=== PATIENT | male | born 1940 | race African-American/Black ===

== ENCOUNTER 2022-09-29 05:04 | Inpatient (IN) | payer BC ==
[~2022-09-29] VITALS: Ht 172.7 cm; Wt 98.6 kg
[2022-09-29] MEDS ORDERED: FUROSEMIDE 40MG/4ML VIAL IVP ONE (05:15)
[2022-09-29] MEDS ORDERED: SODIUM CHLORIDE 0.9% 250 ML IV ONE ×2 (05:45→06:45)
[2022-09-29 06:23] LABS: BG CARBOXYHEMOGLOBIN 1.9 % (0.5-1.5); BG DEOXYHEMOGLOBIN 1.2 % (0.0-5.0); BG FRACTION INSPIRED OXYGEN 60; BG HCO3 ACT 25.2 mmol/L (22.0-26.0); BG METHEMOGLOBIN 0.3 % (0.0-1.5); BG OXYGEN SATURATION 98.8 % (92.0-98.5); BG OXYHEMOGLOBIN 96.6 % (94.0-97.0); BG PCO2 47.9 mmHg (35.0-45.0); BG PH 7.339 (7.350-7.450); BG PO2 150.7 mmHg (75.0-100.0); BG SAMPLE SITE RIGHT RADIAL; BG TOTAL HEMOGLOBIN 13.5 g/dL (12.0-18.0); BG VENT MODE MASK - BIPAP
[2022-09-29 06:32] LABS: BASOPHILS % 0.8 % (0.0-2.0); EOSINOPHILS % 4.5 % (0.0-5.0); HEMATOCRIT. 40.8 % (42.0-52.0); HEMOGLOBIN. 13.6 g/dL (14.0-18.0); LYMPHOCYTES % 11.2 % (20.0-50.0); MEAN PLATELET VOLUME 8.9 fl (7.4-10.4); MONOCYTES % 7.4 % (2.0-8.0); NEUTROPHILS % 76.1 % (40.0-76.0); PLATELET 239 x1000/uL (130-400); RED BLOOD CELL COUNT 4.39 mill/uL (4.7-6.1); RED CELL DISTRIBUTION WIDTH 14.1 % (11.6-14.6)
[2022-09-29 06:53] LABS: CHLORIDE 104 mEq/L (98-107)
[2022-09-29] MEDS ORDERED: ACETAMINOPHEN 325MG TABLET PO PRN (11:15)
[2022-09-29] MEDS ORDERED: ASPIRIN 325MG EC TABLET PO NR (11:15)
[2022-09-29] MEDS ORDERED: GUAIFENESIN 200MG/10ML SUGAR FREE UDC PO PRN (11:15)
[2022-09-29] MEDS ORDERED: IPRATROPIUM/ALBUTEROL 0.5-3(2.5)MG/3ML NEB HHN PRN (11:15)
[2022-09-29] MEDS ORDERED: LORAZEPAM 0.5MG TABLET PO PRN (11:15)
[2022-09-29] MEDS ORDERED: MAGNESIUM/ALUMINUM HYDROXIDE/SIMETHICONE 30ML UDC PO PRN (11:15)
[2022-09-29] MEDS ORDERED: DOCUSATE SODIUM 100MG CAPSULE PO PRN (11:15)
[2022-09-29] MEDS ORDERED: ONDANSETRON HCL 4MG/2ML INJ IV PRN (11:15)
[2022-09-29] MEDS ORDERED: CLONIDINE 0.1MG TABLET PO PRN (11:15)
[2022-09-29] MEDS ORDERED: ENOXAPARIN 40MG/0.4ML SYR SUBCUT SCH (11:15)
[2022-09-29] MEDS ORDERED: ACETAMINOPHEN 650MG/20.3ML UDC GT PRN (11:15)
[2022-09-29] MEDS: FUROSEMIDE 40MG/4ML VIAL IV SCH ×2 (11:30→18:38)
[2022-09-29] MEDS: ENOXAPARIN 30MG/0.3ML SYR SUBCUT SCH ×2 (11:30→21:56)
[2022-09-29] MEDS ORDERED: ZOLPIDEM TARTRATE 5MG TABLET PO PRN (14:45)
[2022-09-29] MEDS ORDERED: NITROGLYCERIN 0.4MG TABLET SL SL PRN (14:45)
[2022-09-29 15:40] LABS: D-DIMER 1.72 mg/L FEU (<0.50); INR 1.1; PROTHROMBIN TIME 11.9 sec (9.6-11.0)
[2022-09-29 16:00] VITALS: BP 130/80
[2022-09-29 16:03] LABS: AMYLASE 27 IU/L (25-115); CREATINE KINASE 82 IU/L (39-308)
[2022-09-29 16:11] LABS: PHOSPHORUS 2.6 mg/dL (2.5-4.9)
[2022-09-29 16:19] LABS: T4 FREE 1.22 ng/dL (0.76-1.46)
[2022-09-29] MEDS: SPIRONOLACTONE 25MG TABLET PO SCH (16:20)
[2022-09-29 16:29] VITALS: BP 173/121
[2022-09-29 16:47] LABS: VITAMIN B12 SERUM 345 pg/mL (211-911)
[2022-09-29 16:51] LABS: FOLIC ACID (FOLATE) SERUM > 20.00 ng/mL (>5.38)
[2022-09-29] MEDS ORDERED: CRES10 PO (18:27)
[2022-09-29] MEDS ORDERED: VALS40TA11 PO (18:27)
[2022-09-29] MEDS ORDERED: RIVA20TA PO (18:27)
[2022-09-29] MEDS ORDERED: HYDR12.54 PO (18:33)
[2022-09-29] MEDS ORDERED: LEVO5TAB29 PO (18:33)
[2022-09-29] MEDS ORDERED: MULT-1146 PO (18:33)
[2022-09-29] MEDS ORDERED: MECL-159 PO (18:33)
[2022-09-29] MEDS ORDERED: ACET-2708 PO (18:33)
[2022-09-29] MEDS ORDERED: FURO20TA4 PO (18:33)
[2022-09-29] MEDS ORDERED: DOCU-150 PO (18:33)
[2022-09-29] MEDS ORDERED: DIXL10 PO (18:33)
[2022-09-29] MEDS ORDERED: GABA-533 PO (18:33)
[2022-09-29] MEDS ORDERED: SOTA80TA PO (18:33)
[2022-09-29] MEDS ORDERED: HYDR-459 PO (18:33)
[2022-09-29 20:00] VITALS: BP 137/81
[2022-09-29] MEDS ORDERED: DEXTROSE 50% WATER 50ML SYRINGE IV PRN (21:45)
[2022-09-29] MEDS: INSULIN LISPRO 100 UNITS/ML SUBCUT SCH (21:54)
[2022-09-29] MEDS: BLOOD SUGAR DIAGNOSTIC STRIP TEST SCH (21:56)
[2022-09-29] MEDS: FAMOTIDINE 20MG TABLET PO SCH (21:56)
[2022-09-30] VITALS: BP 142/72
[2022-09-30 04:00] VITALS: BP 148/86
[2022-09-30 05:40] LABS: *AMPHETAMINES SCREEN URINE NEGATIVE (NEGATIVE); *BARBITURATES SCREEN URINE NEGATIVE (NEGATIVE); *BENZODIAZEPINES SCREEN URINE NEGATIVE (NEGATIVE); *COCAINE SCREEN URINE NEGATIVE (NEGATIVE); CANNABINOID URINE SCREEN NEGATIVE (NEGATIVE); METHADONE URINE SCREEN NEGATIVE (NEGATIVE); OPIATES URINE SCREEN NEGATIVE (NEGATIVE); PHENCYCLIDINE URINE SCREEN NEGATIVE (NEGATIVE)
[2022-09-30 06:36] LABS: BASOPHILS % 0.8 % (0.0-2.0); EOSINOPHILS % 2.4 % (0.0-5.0); HEMATOCRIT. 40.3 % (42.0-52.0); HEMOGLOBIN. 13.4 g/dL (14.0-18.0); LYMPHOCYTES % 11.1 % (20.0-50.0); MEAN CORPUSCULAR HEMOGLOBIN 30.5 pg (28.0-32.0); MEAN CORPUSCULAR VOLUME 91.6 fL (80.0-94.0); MONOCYTES % 9.7 % (2.0-8.0); PLATELET 229 x1000/uL (130-400); RED BLOOD CELL COUNT 4.39 mill/uL (4.7-6.1); RED CELL DISTRIBUTION WIDTH 13.8 % (11.6-14.6)
[2022-09-30] MEDS: BLOOD SUGAR DIAGNOSTIC STRIP TEST SCH ×4 (06:37→20:55)
[2022-09-30] MEDS: INSULIN LISPRO 100 UNITS/ML SUBCUT SCH ×4 (06:37→20:55)
[2022-09-30 06:53] LABS: CHLORIDE 102 mEq/L (98-107)
[2022-09-30] MEDS ORDERED: POTASSIUM CHLORIDE 20MEQ TABLET SR PO NR (07:15)
[2022-09-30 07:34] LABS: HDL CHOLESTEROL 55 mg/dL (40-59); LDL CHOLESTEROL 92 mg/dL (5-100); PHOSPHORUS 2.9 mg/dL (2.5-4.9); T4 FREE 1.29 ng/dL (0.76-1.46)
[2022-09-30 08:00] VITALS: BP 152/88
[2022-09-30] MEDS: SPIRONOLACTONE 25MG TABLET PO SCH (08:23)
[2022-09-30] MEDS: FAMOTIDINE 20MG TABLET PO SCH ×2 (08:23→20:55)
[2022-09-30] MEDS: ASPIRIN 81MG EC TABLET PO SCH ×2 (08:23→09:00)
[2022-09-30] MEDS: FUROSEMIDE 40MG/4ML VIAL IV SCH ×2 (08:23→17:24)
[2022-09-30 12:08] VITALS: BP 162/66
[2022-09-30 16:00] VITALS: BP 152/73
[2022-09-30 20:20] VITALS: BP 142/56
[2022-10-01 00:21] VITALS: BP 120/62
[2022-10-01 04:15] VITALS: BP 137/78
[2022-10-01] MEDS: BLOOD SUGAR DIAGNOSTIC STRIP TEST SCH (06:35)
[2022-10-01] MEDS: INSULIN LISPRO 100 UNITS/ML SUBCUT SCH (06:45)
[2022-10-01 07:47] VITALS: BP 144/95
[2022-10-01] MEDS: ASPIRIN 81MG EC TABLET PO SCH ×2 (09:00→09:22)
[2022-10-01] MEDS: SPIRONOLACTONE 25MG TABLET PO SCH (09:22)
[2022-10-01] MEDS: FAMOTIDINE 20MG TABLET PO SCH (09:22)
[2022-10-01] MEDS: FUROSEMIDE 40MG/4ML VIAL IV SCH (09:22)
[2022-10-01] MEDS: ENOXAPARIN 30MG/0.3ML SYR SUBCUT SCH (09:23)
[2022-10-01] MEDS ORDERED: SPIR25TA MT (10:17)
[2022-10-01] MEDS ORDERED: FURO-151 MT (10:17)
[2022-10-01 11:34] VITALS: BP 144/95
== END 2022-10-01 12:30 | disposition home health service (06) | DRG 280 ==
LOC: ER 05:04 → EDSEX 05:04 → MICUSO 10:30 → EDBEDREQTM 10:32 → EDBEDREQ 10:32 → 3WST 14:32
PROVIDERS: ADMIT Internal Medicine; ATTEND Internal Medicine
PROC: 5A09357 Assistance with Respiratory Ventilation, Less than 24 Consecutive Hours, Continuous Positive Airway Pressure (ICD-10-PCS; principal; 2022-09-29)
DX: I11.0 Hypertensive heart disease with heart failure (principal); I21.4 Non-ST elevation (NSTEMI) myocardial infarction; I50.33 Acute on chronic diastolic (congestive) heart failure; J96.01 Acute respiratory failure with hypoxia; J96.02 Acute respiratory failure with hypercapnia; Z20.822 Contact with and (suspected) exposure to COVID-19; D72.829 Elevated white blood cell count, unspecified; G47.33 Obstructive sleep apnea (adult) (pediatric); I45.10 Unspecified right bundle-branch block; K76.89 Other specified diseases of liver; F10.10 Alcohol abuse, uncomplicated; Z95.0 Presence of cardiac pacemaker
CPT/HCPCS: 36415; 36600; 71045; 76700; 80053; 80061; 80305; 82150; 82375; 82550; 82553; 82607; 82746; 82805; 82962; 83036; 83540; 83550; 83605; 83735; 83880; 84100; 84439; 84443; 84484; 85025; 85379; 87426; 93005; 93306; 93970; 99291; C9803; J1650; J1815; J1940; J7050

== ENCOUNTER 2023-09-15 05:14 | Emergency (ER) | payer BC, MEDICARE ==
[~2023-09-15] VITALS: Ht 177.8 cm; Wt 110.0 kg
[~2023-09-15 05:14] MED LIST: ACET-2708 PO; CRES10 PO; DIXL10 PO; DOCU-150 PO; FURO-151 MT; GABA-534 PO; MULT-1146 PO; RIVA20TA PO; SOTA80TA PO; SPIR25TA MT; VALS40TA11 PO
[2023-09-15 05:16] VITALS: O2SAT 97
[2023-09-15] MEDS ORDERED: ACETAMINOPHEN 325MG TABLET PO STA (05:39)
[2023-09-15] MEDS ORDERED: SODIUM CHLORIDE 0.9% 1,000 ML IV ONE (05:45)
[2023-09-15 07:48] LABS: HEMATOCRIT. 26.1 % (42.0-52.0); HEMOGLOBIN. 8.2 g/dL (14.0-18.0); MEAN CORPUSCULAR HEMOGLOBIN 25.1 pg (28.0-32.0); MEAN CORPUSCULAR HGB CONC 31.2 g/dL (31.0-37.0); MEAN CORPUSCULAR VOLUME 80.4 fL (80.0-94.0); MEAN PLATELET VOLUME 9.5 fl (7.4-10.4); PLATELET 229 x1000/uL (130-400); RED BLOOD CELL COUNT 3.25 mill/uL (4.7-6.1); RED CELL DISTRIBUTION WIDTH 18.8 % (11.6-14.6); WHITE BLOOD COUNT 15.9 x1000/uL (4.5-11.0)
[2023-09-15 07:57] LABS: DIFFERENTIAL COMMENT 1
[2023-09-15 07:58] LABS: PROTHROMBIN TIME 10.9 sec (9.6-11.0)
[2023-09-15 08:21] LABS: ALANINE AMINOTRANSFERASE 30 IU/L (10-49); ALBUMIN 3.7 g/dL (3.2-4.8); ASPARTATE AMINOTRANSFERASE 37 IU/L (<34); BILIRUBIN TOTAL 0.4 mg/dL (0.1-1.0); CALCIUM 8.6 mg/dL (8.7-10.4); CARBON DIOXIDE 26 mEq/L (21-32); CHLORIDE 106 mEq/L (98-107); CREATININE 1.1 mg/dL (0.6-1.3); GLUCOSE 135 mg/dL (70-105); POTASSIUM 3.8 mEq/L (3.5-5.1); PROTEIN TOTAL 6.2 g/dL (6.0-8.3); SODIUM 141 mEq/L (136-145); TROPONIN I HIGH SENSITIVITY 20 ng/L (3.0-53); UREA NITROGEN BLOOD 24 mg/dL (9-23)
[2023-09-15 08:29] LABS: PLATELET ESTIMATE NORMAL
[2023-09-15 08:32] LABS: ANISOCYTOSIS 1+
[2023-09-15] MEDS ORDERED: DEXT 5%/LACTATED RINGERS 1,000 ML IV SCH (10:15)
[2023-09-15] MEDS ORDERED: LIDOCAINE HCL 1%/EPI 1:200,000 30 ML VIAL ONE (11:07)
[2023-09-15] MEDS ORDERED: THROMBIN (BOVINE) 5000 UNITS/VIAL TOP ONE (11:07)
[2023-09-15] MEDS ORDERED: GENTAMICIN SULF 40MG/ML 2ML VIAL ONE (11:07)
[2023-09-15] MEDS ORDERED: BACITRACIN 14GM TUBE TOP ONE (11:08)
[2023-09-15] MEDS ORDERED: LEVOFLOXACIN 500MG PREMIX 100 ML IV SCH (11:30)
[2023-09-15 12:30] VITALS: BP 120/50; PULSE 75; RESP 16; TEMP 98.2
== END 2023-09-15 12:50 | disposition left against medical advice (07) ==
LOC: ER 05:37 → EDBEDREQTM 11:15 → EDBEDREQ 11:15 → ER 12:50 → UNDOADMIN 09-16 05:54 → MICUSO 09-16 05:54
DX: S22.079A Unspecified fracture of T9-T10 vertebra, initial encounter for closed fracture (principal); K92.2 Gastrointestinal hemorrhage, unspecified; J94.2 Hemothorax; J98.11 Atelectasis; D64.9 Anemia, unspecified; E11.9 Type 2 diabetes mellitus without complications; I11.0 Hypertensive heart disease with heart failure; I25.10 Atherosclerotic heart disease of native coronary artery without angina pectoris; I35.0 Nonrheumatic aortic (valve) stenosis; I50.9 Heart failure, unspecified; M48.04 Spinal stenosis, thoracic region; Z95.0 Presence of cardiac pacemaker; Z87.01 Personal history of pneumonia (recurrent); W18.30XA Fall on same level, unspecified, initial encounter; Y93.89 Activity, other specified; Y92.89 Other specified places as the place of occurrence of the external cause; Y99.8 Other external cause status
CPT/HCPCS: 99291; 70450; 96361; 96360; 80053; 85025; 85610; 86850; 86900; 86901; 86920; 84484; 36415; 71045; 72170; 72128; 71250; 74176; 93005; J7030; J1580; J3490